=== PATIENT | female | born 1945 | race Two or more races ===

== ENCOUNTER 2017-11-23 10:57 | Observation (INO) | payer OTHER ==
[~2017-11-23] VITALS: Ht 152.4 cm; Wt 59.0 kg
[~2017-11-23 10:57] MED LIST: IBU800T
[2017-11-23] MEDS ORDERED: ACETAMINOPHEN 325 MG TAB PO ONE ×2 (12:22→12:30)
[2017-11-23] MEDS ORDERED: ONDANSETRON HCL 4 MG/2 ML VIAL ONE (12:33)
[2017-11-23] MEDS ORDERED: ONDANSETRON HCL 4 MG/2 ML VIAL IV ONE (12:45)
[2017-11-23 15:34] VITALS: BP 154/77
== END 2017-11-23 16:46 | disposition home or self-care (01) | DRG 605 ==
LOC: ER 10:57 → EDBD 10:57 → OVERFLOW 10:58 → ER 16:46
PROVIDERS: ADMIT Family Medicine; ATTEND Family Medicine
DX: S00.03XA Contusion of scalp, initial encounter (principal); S43.402A Unspecified sprain of left shoulder joint, initial encounter; I10 Essential (primary) hypertension; W01.0XXA Fall on same level from slipping, tripping and stumbling without subsequent striking against object, initial encounter; Y93.89 Activity, other specified; Y92.512 Supermarket, store or market as the place of occurrence of the external cause; Y99.8 Other external cause status; Z88.5 Allergy status to narcotic agent; Z82.49 Family history of ischemic heart disease and other diseases of the circulatory system
CPT/HCPCS: 70450; 72192; 73020; 73060; 82962; 96374; 99285; G0378; J2405